=== PATIENT | female | born 1995 | race African-American/Black ===

== ENCOUNTER 2016-03-21 22:09 | Emergency (ER) | payer BC, OTHER ==
[~2016-03-21] VITALS: Ht 154.9 cm; Wt 57.0 kg
[2016-03-21 22:11] VITALS: BP 144/81; PULSE 75; RESP 14; TEMP 97.7; O2SAT 100
--- NOTE | 2016-03-21 23:05 | PD ---
HPI Chief Complaint: Pain: Acute or Chronic Time Seen by Provider: 23:01 Travel History International Travel<30 days: No Contact w/Intl Traveler<30days: No Traveled to known affect area: No History of Present Illness HPI 20-year-old black female presents to emergency department with complaints of a painful lump by her anus over the last 2 days. She states that she has used some Preparation H at the recommendation of a friend. She states that she has noted no bleeding. No nausea vomiting. She does have a history of feeling dehydrated and does not drink enough fluids. Her stools tend to be a bit harder but she has not remembered having any severe constipation. PFSH Past Medical History Asthma: Yes Diabetes: Yes Diminished Hearing: No Respiratory: Yes (ASTHMA) Immunizations Current: Yes Tetanus Vaccination: < 5 Years : 0 Past Surgical History Surgical History: No Previous Surgery Social History Alcohol Use: No Tobacco Use: No Substance Use: No Allergies-Medications (Allergen,Severity, Reaction): Coded Allergies: No Known Allergies (Verified , 03/21/16) Reported Meds & Prescriptions Reported Meds & Active Scripts Active No Active Prescriptions or Reported Medications Review of Systems Except as stated in HPI: all other systems reviewed are Neg Physical Exam Narrative GENERAL: This is a well-nourished, well-developed patient, in no apparent distress. Patient's examined with Chel de la garza nurse present. SKIN: No rashes, ecchymoses or lesions. Warm and dry. HEAD: Atraumatic. Normocephalic. EYES: PERRL, EOMI, no discharge or injection. No scleral icterus. EARS: Clear NOSE: Nasal turbinates appear normal. THROAT: Mucosa pink and moist. Airway patent. NECK: Trachea midline. supple, moves head freely. LUNGS: Clear to auscultation. CV: Regular in rhythm. ABDOMEN: Soft nontender. EXT: No clubbing cyanosis or edema. Rectal: The patient has a thrombosed hemorrhoid at the 6:00 hour. This measures 1 x 2 cm. It is flesh-colored. Mobile. Mildly tender. Data Data Last Documented VS Vital Signs Date Time Temp Pulse Resp B/P Pulse Ox O2 Delivery O2 Flow Rate FiO2 03/21/16 22:11 97.7 75 14 144/81 100 Room Air MDM Medical Decision Making Medical Screen Exam Complete: Yes Emergency Medical Condition: Yes Medical Record Reviewed: Yes Differential Diagnosis Differential diagnosis: Internal hemorrhoids, external hemorrhoids, thrombosed hemorrhoid, pararectal abscess Narrative Course This is a thrombosed hemorrhoid Diagnosis Primary Impression: Thrombosed external hemorrhoid Patient Instructions: General Instructions Departure Forms: Tests/Procedures, Work Release Special Instructions: No work 2-3 days Additional Instructions: Rest. Increase fluids. MiraLAX daily. Preparation H4 times daily. Sits baths 4 times daily. Follow-up with your doctor or a colorectal doctor in one week. Return to the ER for emergencies. Med/Other Pt SpecificInfo: No Meds Exist/No RX given Scripts No Active Prescriptions or Reported Meds Disposition: 01 DISCHARGE HOME Condition: Stable Ronald Cueto Mar 21, 2016 23:05
== END 2016-03-21 23:22 | disposition home or self-care (01) ==
LOC: NEPB 22:09
DX: K64.5 Perianal venous thrombosis (principal); J45.909 Unspecified asthma, uncomplicated; E11.9 Type 2 diabetes mellitus without complications
CPT/HCPCS: 99283